=== PATIENT | female | born 1935 | race Caucasian/White ===

== ENCOUNTER 2016-08-29 08:07 | Emergency (ER) | payer OTHER ==
[~2016-08-29] VITALS: Ht 152.4 cm; Wt 52.0 kg
[~2016-08-29 08:07] MED LIST: ATOR-24 PO; CALC600T9; CHOL4POW14; LISIPOW PO; MECL1TAB42; METF1000 PO; OMEP20CA9 PO; SIMV40TA4 PO; SUCR1TAB PO; TRAM-10 PO; [UNRECOGNIZED DRUG - CODE]
[2016-08-29 08:10] VITALS: TEMP 36.5; Ht 152.4 cm; Wt 52.0 kg
--- NOTE | 2016-08-29 08:42 | EMERGENCY ROOM VISIT NOTE ---
History First contact with patient: 08:17 Chief Complaint: ABDOMINAL PAIN Stated Complaint: JOSE. LEG PAIN, PELVIC PAIN Nursing Triage Summary: PT PRESENTS TO TRIAGE WITH HER DAUGHTER WHO VERBALIZES BILATERAL LOWER QUADRANT ABDOMINAL PAIN RADIATING INTO BILATERAL LEGS. PT DESCRIBES PAIN INTERMITTENT STARTING THIS AM AT 0630. PTS DTR REPORTS POSSIBLE CONSTIPATION, BUT UNSURE OF LAST BM. DENIES VOMITING OR DIARRHEA, BUT PT DOES REPORT NAUSEA. History of Present Illness The patient is an 81 year old female who presents to the Emergency Room with complaints of abdominal pain. The patient presents to the emergency department with her [id number] who lives next door to her. The history is obtained from both the patient and the [id number] as the patient has a history of dementia. The patient's family states that she was called by the home health nurse who stays with the patient overnight indicating that she had lower abdominal pain to the point that she had difficulty walking. She has been doing well otherwise and has not had any recent earache, sore throat, cough, fever. She denies any chest pain or trouble breathing. She has not had any diarrhea, nausea or vomiting. The patient is not certain when her last bowel movement was. When asked if she has pain she says no but does rate the discomfort at 5/10. The patient has a history of kidney stones and urinary tract infections. Review of Systems A 10 system review of systems was completed with positives and pertinent negatives listed in the HPI. Past Medical/Surgical History Medical Problems: (1) Hyperlipemia (2) Kidney disease Family History No pertinent family history Social History Smoking Status: Never Smoker Marital Status: Housing Status: lives with friends Current/Historical Medications Scheduled Atorvastatin (Lipitor), 40 MG PO DAILY Calcium Carbonate (Calcium), 600 MG PO BID Docusate Sodium (Colace), 100 MG PO DAILY Donepezil Hydrochloride (Donepezil Hcl), 5 MG PO QPM Omeprazole (Prilosec), 20 MG PO DAILY Sucralfate (Sucralfate), 1 GM PO BID Allergies Coded Allergies: Penicillins (Verified Allergy, Severe, lips swelling, 08/29/16) Aspirin (Unverified Allergy, Unknown, UNKNOWN, 08/29/16) BEE STING (Verified Allergy, Unknown, RASH, 08/29/16) Physical Exam Vital Signs Date Time Temp Pulse Resp B/P Pulse Ox O2 Delivery O2 Flow Rate FiO2 08/29/16 11:45 57 16 154/55 98 08/29/16 10:07 52 16 164/68 97 Room Air 08/29/16 08:10 36.5 73 20 186/76 100 Room Air Physical Exam VITALS: Vitals are noted on the nurse's note and reviewed by myself. Vital signs stable. The patient is afebrile. GENERAL: This is an 81-year-old female, in no acute distress, nondiaphoretic, well-developed well-nourished. SKIN: The skin was without rashes, erythema, edema, or bruising. There is no tenting of the skin. Capillary reflex less than 2 seconds. HEAD: Normocephalic atraumatic. EARS: The external ears are normal in appearance. EYES: Pupils equal round and reactive to light and accommodation. Conjunctivae without injection, sclerae without icterus. Extraocular movements intact. NOSE: Patent, turbinates without inflammation or discharge. MOUTH: Mucous membranes moist. Tonsils are not enlarged. Pharynx without erythema or exudate. Uvula midline. Airway patent. Tongue does not deviate. NECK: Supple without nuchal rigidity. No lymphadenopathy. No thyromegaly. Cervical spine is nontender. No JVD. HEART: Regular rate and rhythm without murmurs gallops or rubs. LUNGS: Clear to auscultation bilaterally without wheezes, rales or rhonchi. No retractions or accessory muscle use. ABDOMEN: Positive bowel sounds x 4. Soft, moderate diffuse lower abdominal tenderness with marked suprapubic and right lower quadrant tenderness, without masses or organomegaly. Cook sign negative. RECTAL: There are no obvious hemorrhoids. There is no obvious blood. Rectal tone is intact. The stool is soft and brown. There is a large amount of stool in the rectal fall but it is soft. It was removed with digital disimpaction and the patient had a small bowel movement. MUSCULOSKELETAL: No muscle atrophy, erythema, or edema noted. Full range of motion in all extremities. . Normal gait. Strength 5/5 throughout. NEURO: Patient was alert and oriented to person place and time. No focal neurological deficits. Medical Decision & Procedures ER Provider Diagnostic Interpretation: CT OF THE ABDOMEN AND PELVIS WITHOUT CONTRAST, STONE PROTOCOL CLINICAL HISTORY: Right abdominal/flank pain. COMPARISON STUDY: None. TECHNIQUE: Helical axial images of the abdomen and pelvis were obtained without IV or oral contrast according to renal stone protocol. FINDINGS: Visualized portions of the lower chest demonstrate a 5 mm right lower lobe pulmonary nodule shown on image 4 of 398. This is likely benign. There is no biliary ductal dilatation status post cholecystectomy. Unenhanced images of liver, spleen, adrenal glands and pancreas are normal. No renal, ureteral or bladder calculi are present there are are scattered bilateral parapelvic cysts. There is mild bilateral pelvocaliectasis. Evaluation of the abdomen and pelvis is suboptimal as unenhanced exam. There is no evidence for bowel obstruction. The appendix is normal. There is a moderate to large amount of stool within the rectum. There is a bbzq-xu-[id number] amount stool within the colon. Bladder wall thickening with adjacent infiltration is noted. The bladder is underdistended. There is no pneumatosis, free air or portal venous gas. There are no suspicious osseous lesions. IMPRESSION: 1. No urinary calculi. 2. Mild to moderate right hydronephrosis and mild dilatation of the left renal pelvis, of uncertain etiology. 3. Moderate to large amount stool within the rectum. No bowel obstruction. Normal appendix. 4. Bladder wall thickening with adjacent infiltration which could be correlated with urinalysis to exclude cystitis. Laboratory Results 08/29/16 09:00 Red Blood Count 4.44, Mean Corpuscular Volume 95.3, Mean Corpuscular Hemoglobin 31.3, Mean Corpuscular Hemoglobin Concent 32.9, Mean Platelet Volume 11.1, Neutrophils (%) (Auto) 68.3, Lymphocytes (%) (Auto) 19.1, Monocytes (%) (Auto) 8.9, Eosinophils (%) (Auto) 3.0, Basophils (%) (Auto) 0.5, Neutrophils # (Auto) 4.14, Lymphocytes # (Auto) 1.16, Monocytes # (Auto) 0.54, Eosinophils # (Auto) 0.18, Basophils # (Auto) 0.03 08/29/16 09:00 Test 08/29/16 09:00 08/29/16 09:05 White Blood Count 6.06 K/uL (4.8-10.8) Red Blood Count 4.44 M/uL (4.2-5.4) Hemoglobin 13.9 g/dL (12.0-16.0) Hematocrit 42.3 % (37-47) Mean Corpuscular Volume 95.3 fL (80-100) Mean Corpuscular Hemoglobin 31.3 pg (25-34) Mean Corpuscular Hemoglobin Concent 32.9 g/dl (32-36) Platelet Count 212 K/uL (130-400) Mean Platelet Volume 11.1 fL (7.4-10.4) Neutrophils (%) (Auto) 68.3 % Lymphocytes (%) (Auto) 19.1 % Monocytes (%) (Auto) 8.9 % Eosinophils (%) (Auto) 3.0 % Basophils (%) (Auto) 0.5 % Neutrophils # (Auto) 4.14 K/uL (1.4-6.5) Lymphocytes # (Auto) 1.16 K/uL (1.2-3.4) Monocytes # (Auto) 0.54 K/uL (0.11-0.59) Eosinophils # (Auto) 0.18 K/uL (0-0.5) Basophils # (Auto) 0.03 K/uL (0-0.2) RDW Standard Deviation 43.8 fL (36.4-46.3) RDW Coefficient of Variation 12.5 % (11.5-14.5) Immature Granulocyte % (Auto) 0.2 % Immature Granulocyte # (Auto) 0.01 K/uL (0.00-0.02) Anion Gap 8.0 mmol/L (3-11) Est Creatinine Clear Calc Drug Dose 22.3 ml/min Estimated GFR () 40.5 Estimated GFR (Non- 34.9 BUN/Creatinine Ratio 27.1 (10-20) Calcium Level 9.3 mg/dl (8.5-10.1) Total Bilirubin 0.6 mg/dl (0.2-1) Aspartate Amino Transf (AST/SGOT) 17 U/L (15-37) Alanine Aminotransferase (ALT/SGPT) 21 U/L (12-78) Alkaline Phosphatase 84 U/L (45-117) Total Protein 6.7 gm/dl (6.4-8.2) Albumin 3.8 gm/dl (3.4-5.0) Globulin 2.9 gm/dl (2.5-4.0) Albumin/Globulin Ratio 1.3 (0.9-2) Lipase 139 U/L (73-393) Urine Color YELLOW Urine Appearance CLEAR (CLEAR) Urine pH 6.0 (4.5-7.5) Urine Specific [place] 1.018 (1.000-1.030) Urine Protein NEG (NEG) Urine Glucose (UA) NEG (NEG) Urine Ketones NEG (NEG) Urine Occult Blood NEG (NEG) Urine Nitrite NEG (NEG) Urine Bilirubin NEG (NEG) Urine Urobilinogen NEG (NEG) Urine Leukocyte Esterase NEG (NEG) ED Course The patient was seen and examined. Previous visits were reviewed. The patient does not have a fever or leukocytosis. She does not have any significant electrolyte abnormalities. BUN and creatinine are elevated and she has history of chronic kidney disease. Her kidney function appears to be near baseline. Lipase was not elevated. Urinalysis was negative for hematuria or urinary tract infection. CT scan of abdomen and pelvis was performed as above. The patient has hydronephrosis but no obvious stone. She also has bladder wall thickening but no evidence for cystitis on cath urinalysis. The patient and her family were both advised of these findings and encouraged to follow-up with the family doctor. The patient presents to the emergency department with lower abdominal pain and tenderness that started this morning. CT scan did not reveal any acute abnormality. She did have a large amount of stool in the rectal area. Once the straight cath was performed and her bladder was drained and I performed digital disimpaction, the patient's pain completely resolved. She likely felt pressure from both of her bladder and large amount of stool in the rectum. The patient was ambulatory without any difficulty, pain or distress. On repeat examination, she had no abdominal tenderness whatsoever. She should follow-up with her family doctor for further evaluation and management. She should return with worsening symptoms. The patient was also seen and examined by who agrees with the assessment and treatment plan. Medical Decision DIFFERENTIAL DIAGNOSIS: Hepatitis, cholecystitis, cholangitis, biliary colic, pancreatitis, pneumonia, subdiaphragmatic abscess, appendicitis, inguinal hernia , nephrolithiasis, inflammatory bowel disease, mesenteric adenitis, peptic ulcer disease, GERD, gastritis, pancreatitis, myocardial infarction, pericarditis, ruptured aortic aneurysm, appendicitis, gastroenteritis, bowel obstruction, splenic infarct, diverticulitis, mesenteric ischemia, metabolic, peritonitis, among others. Impression Primary Impression: Right lower quadrant abdominal pain Additional Impression: Constipation Departure Information Dispostion Home / Self-Care Condition GOOD Referrals Adrienne Bentley M.D. (PCP) Patient Instructions Abdominal Pain, Constipation, My [facility] Additional Instructions Follow up with your family doctor this week for recheck Return with worsening symptoms, vomiting, fevers, worsening pain Problem Qualifiers Additional Impression:
[2016-08-29] MEDS ORDERED: ATOR-24 PO (08:56)
[2016-08-29] MEDS ORDERED: SUCR1TAB PO (08:56)
[2016-08-29] MEDS ORDERED: CALC-393 PO (08:56)
[2016-08-29] MEDS ORDERED: PRLSR20 PO (08:56)
[2016-08-29] MEDS ORDERED: DOCU-94 PO (08:56)
[2016-08-29] MEDS ORDERED: DONE1TAB11 PO (08:56)
[2016-08-29 09:22] LABS: URINE APPEARANCE CLEAR (CLEAR); URINE BILIRUBIN NEG (NEG); URINE COLOR YELLOW; URINE NITRITE NEG (NEG); URINE SPECIFIC GRAVITY 1.018 (1.000-1.030); UROBILINOGEN NEG (NEG); ZZURINE CULT IF INDIC CATH NO
[2016-08-29 09:22] LABS: BASO % 0.5 %; BASO ABS # 0.03 K/uL (0-0.2); COMPLETE YES; HEMATOCRIT 42.3 % (37-47); IG% 0.2 %; LYMPH % 19.1 %; LYMPH ABS # 1.16 K/uL (1.2-3.4); MEAN CELL VOLUME 95.3 fL (80-100); MEAN CORPUSCULAR HEMOGLOBIN 31.3 pg (25-34); MEAN CORPUSCULAR HGB CONC 32.9 g/dl (32-36); MEAN PLATELET VOLUME 11.1 fL (7.4-10.4); MONO % 8.9 %; NEUT % 68.3 %; PLATELET COUNT 212 K/uL (130-400); RED BLOOD COUNT 4.44 M/uL (4.2-5.4); WHITE BLOOD COUNT 6.06 K/uL (4.8-10.8)
[2016-08-29 09:26] LABS: MANUAL MICROSCOPIC REQUIRED? NO; REVIEW REQ? NO
[2016-08-29 09:37] LABS: CALCIUM 9.3 mg/dl (8.5-10.1)
[2016-08-29 09:39] LABS: BUN/CREATININE RATIO 27.1 (10-20); CREATININE 1.4 mg/dl (0.60-1.20); POTASSIUM 4.1 mmol/L (3.5-5.1)
[2016-08-29 09:42] LABS: ALB/GLOB RATIO 1.3 (0.9-2)
--- NOTE | 2016-08-29 10:04 | DIAGNOSTIC IMAGING REPORT ---
CT OF THE ABDOMEN AND PELVIS WITHOUT CONTRAST, STONE PROTOCOL CLINICAL HISTORY: Right abdominal/flank pain. COMPARISON STUDY: None. TECHNIQUE: Helical axial images of the abdomen and pelvis were obtained without IV or oral contrast according to renal stone protocol. FINDINGS: Visualized portions of the lower chest demonstrate a 5 mm right lower lobe pulmonary nodule shown on image 4 of 398. This is likely benign. There is no biliary ductal dilatation status post cholecystectomy. Unenhanced images of liver, spleen, adrenal glands and pancreas are normal. No renal, ureteral or bladder calculi are present there are are scattered bilateral parapelvic cysts. There is mild bilateral pelvocaliectasis. Evaluation of the abdomen and pelvis is suboptimal as unenhanced exam. There is no evidence for bowel obstruction. The appendix is normal. There is a moderate to large amount of stool within the rectum. There is a [id number] amount stool within the colon. Bladder wall thickening with adjacent infiltration is noted. The bladder is underdistended. There is no pneumatosis, free air or portal venous gas. There are no suspicious osseous lesions. IMPRESSION: 1. No urinary calculi. 2. Mild to moderate right hydronephrosis and mild dilatation of the left renal pelvis, of uncertain etiology. 3. Moderate to large amount stool within the rectum. No bowel obstruction. Normal appendix. 4. Bladder wall thickening with adjacent infiltration which could be correlated with urinalysis to exclude cystitis. Electronically signed by: Kamar Knox M.D. 08/29/2016 10:03 AM Dictated Date/Time: 08/29/2016 9:48 AM
--- NOTE | 2016-08-29 11:08 | EMERGENCY ROOM VISIT NOTE ---
ED Visit Note First contact with patient: 08:17 I saw this patient in conjunction with Kim Marmolejo PA-C. I agree with her decision making and treatment plan.
[2016-08-29 11:45] VITALS: BP 154/55; PULSE 57; O2SAT 98
== END 2016-08-29 11:45 | disposition home or self-care (01) ==
LOC: C.EDB 08:09 → C.EDA 11:45
DX: R10.31 Right lower quadrant pain (principal); K59.00 Constipation, unspecified; F03.90 Unspecified dementia, unspecified severity, without behavioral disturbance, psychotic disturbance, mood disturbance, and anxiety; E78.5 Hyperlipidemia, unspecified; N18.9 Chronic kidney disease, unspecified; Z87.442 Personal history of urinary calculi; Z87.440 Personal history of urinary (tract) infections; Z79.899 Other long term (current) drug therapy